=== PATIENT | male | born 1940 | race Caucasian/White ===

== ENCOUNTER → 2020-09-04 | Outpatient (REF) | payer MEDICARE | LOC: M LAB REF 13:53 | PROVIDERS: ATTEND Physician Assistant | DX: D22.61 Melanocytic nevi of right upper limb, including shoulder (principal); L81.4 Other melanin hyperpigmentation ==

== ENCOUNTER → 2021-03-13 | Outpatient (REF) | payer MEDICARE | LOC: M LAB REF 17:19 | PROVIDERS: ATTEND Physician Assistant | DX: C44.619 Basal cell carcinoma of skin of left upper limb, including shoulder (principal); L81.4 Other melanin hyperpigmentation | CPT/HCPCS: 11102; 11103; 17000; 17003; 17110; 88305; G0463 ==

== ENCOUNTER → 2021-10-17 | Outpatient (REF) | payer MEDICARE | LOC: M LAB REF 17:17 | PROVIDERS: ATTEND Physician Assistant | DX: C44.219 Basal cell carcinoma of skin of left ear and external auricular canal (principal); D22.5 Melanocytic nevi of trunk; L82.1 Other seborrheic keratosis | CPT/HCPCS: 11102; 11103; 17000; 17003; 88305; G0463 ==

== ENCOUNTER → 2023-01-08 | Outpatient (REF) | payer MEDICARE | LOC: M SFHCDERM 14:16 → M LAB REF 14:16 | PROVIDERS: ATTEND Physician Assistant | DX: D22.5 Melanocytic nevi of trunk (principal) ==

== ENCOUNTER → 2023-02-25 | Outpatient (REF) | payer MEDICARE | LOC: M SFHCDERM 08:37 | PROVIDERS: ATTEND Physician Assistant | DX: L90.5 Scar conditions and fibrosis of skin (principal) ==

== ENCOUNTER → 2024-03-17 | Outpatient (REF) | payer MEDICARE | LOC: M SFHCDERM 09:38 | PROVIDERS: ATTEND Physician Assistant | DX: C44.712 Basal cell carcinoma of skin of right lower limb, including hip (principal) ==